=== PATIENT | female | born 1985 | race Caucasian/White ===

== ENCOUNTER 2020-07-14 13:17 | Outpatient (CLI) | payer OTHER ==
[~2020-07-14] VITALS: Ht 170.2 cm; Wt 77.7 kg
[~2020-07-14 13:17] MED LIST changes: -HYDR-3240 PO; -IBUP-1222 PO; -LEVO125T PO; -LEVO125T5 PO; -LEVO137T2 PO; -LEVO150T PO; -LEVO88TA2 PO; -LEVO88TA4 PO; -PREN1TAB79 PO; -SENN-52 PO
[2020-07-14 13:46] LABS: MICROSCOPIC INDICATED
[2020-07-14 14:02] LABS: BASOPHILS % (AUTO) 0 % (0-1); EOSINOPHILS % (AUTO) 1 % (1-7); LYMPHOCYTES % (AUTO) 16 % (22-44); MEAN CORPUSCULAR HEMOGLOBIN 27.8 pg (27.0-34.8); MEAN CORPUSCULAR HGB CONC 32.5 g/dL (32.4-35.8); MEAN PLATELET VOLUME 10.6 fL (7.4-10.4); MONOCYTES % (AUTO) 8 % (2-9); NEUTROPHILS % (AUTO) 74 % (42-75); PLATELET COUNT 174 x10^3/uL (130-400); RED BLOOD COUNT 4.33 x10^6/uL (3.82-5.3); RED CELL DISTRIBUTION WIDTH 13.8 % (9.6-15.2)
[2020-07-14 14:05] LABS: ALBUMIN 2.5 g/dL (3.4-5.0); ANION GAP 8 mmol/L (5-15); CALCIUM 8.7 mg/dL (8.5-10.1); CHLORIDE 108 mmol/L (98-107)
[2020-07-14 14:14] LABS: ALANINE AMINOTRANSFERASE 13 U/L (12-78); ALKALINE PHOSPHATASE 169 U/L (45-117); BILIRUBIN,TOTAL 0.3 mg/dL (0.2-1.0); CREATININE 0.82 mg/dL (0.55-1.02); TOTAL PROTEIN 6.5 g/dL (6.4-8.2)
[2020-07-14 14:18] LABS: BILIRUBIN, DIRECT < 0.1 mg/dL (0.1-0.2)
[2020-07-14 14:36] LABS: MD SCAN
[2020-07-15] MEDS ORDERED: LEVO125T PO (19:37)
[2020-07-15] MEDS ORDERED: LEVO88TA2 PO (19:37)
[2020-07-15] MEDS ORDERED: PREN1TAB79 PO (19:37)
[2020-07-15] MEDS ORDERED: LEVO137T2 PO (19:37)
[2020-07-15] MEDS ORDERED: LEVO150T PO (19:37)
== END 2020-07-14 14:54 | disposition home or self-care (01) ==
LOC: LDOP 13:17
PROVIDERS: ATTEND Obstetrics & Gynecology
DX: O16.3 Unspecified maternal hypertension, third trimester (principal); Z3A.39 39 weeks gestation of pregnancy
CPT/HCPCS: 36415; 59025; 80053; 81001; 82248; 82570; 84156; 84550; 85025

== ENCOUNTER → 2020-07-14 | Outpatient (CLI) | payer OTHER ==
[~2020-07-14] MED LIST: HYDR-3240 PO; HYDR-3245 PO; IBUP-1222 PO; LEVO112T2 PO; LEVO125T PO; LEVO125T5 PO; LEVO137T2 PO; LEVO150T PO; LEVO88TA2 PO; LEVO88TA4 PO; PREN1TAB79 PO; SENN-52 PO
== END | disposition home or self-care (01) ==
LOC: STAR 10:45
PROVIDERS: ATTEND Obstetrics & Gynecology
DX: Z01.812 Encounter for preprocedural laboratory examination (principal); Z20.828 Contact with and (suspected) exposure to other viral communicable diseases
CPT/HCPCS: 36415; 87635

== ENCOUNTER 2020-07-15 16:58 | Inpatient (IN) | payer OTHER ==
[~2020-07-15] VITALS: Ht 170.2 cm; Wt 77.7 kg
[2020-07-15 17:30] VITALS: BP 136/76
[2020-07-15] MEDS ORDERED: TERBUTALINE 1 MG/ML, 1ML SQ PRN (17:30)
[2020-07-15] MEDS ORDERED: OXYTOCIN 30U/ 0.9% NaCL 500ML 500 ML IV PRN (17:30)
[2020-07-15] MEDS ORDERED: FENTANYL PF 100 MCG/2ML IVPush PRN (17:30)
[2020-07-15] MEDS ORDERED: D5%-LACTATED RINGERS 1,000 ML IV SCH (17:30)
[2020-07-15] MEDS ORDERED: LACTATED RINGERS 1,000 ML IV SCH ×2 (17:30→19:00)
[2020-07-15] MEDS ORDERED: OXYTOCIN 30U/ 0.9% NaCL 500ML 500 ML IV ONE (17:30)
[2020-07-15] MEDS ORDERED: ONDANSETRON 2MG/ML, 2ML IVPush PRN (17:30)
[2020-07-15] MEDS ORDERED: TERBUTALINE 1 MG/ML, 1ML IVPush PRN (17:30)
[2020-07-15] MEDS ORDERED: OXYTOCIN 30U/ 0.9% NaCL 500ML 500 ML ONE (17:35)
[2020-07-15] MEDS ORDERED: FENTANYL PF 100 MCG/2ML ONE (17:35)
[2020-07-15] MEDS ORDERED: NEWBORN KIT ONE (17:35)
[2020-07-15 18:08] LABS: BASOPHILS % (AUTO) 0 % (0-1); EOSINOPHILS % (AUTO) 0 % (1-7); LYMPHOCYTES % (AUTO) 13 % (22-44); MEAN CORPUSCULAR HEMOGLOBIN 28.2 pg (27.0-34.8); MEAN CORPUSCULAR HGB CONC 32.9 g/dL (32.4-35.8); MEAN PLATELET VOLUME 11.3 fL (7.4-10.4); MONOCYTES % (AUTO) 7 % (2-9); NEUTROPHILS % (AUTO) 80 % (42-75); PLATELET COUNT 172 x10^3/uL (130-400); RED BLOOD COUNT 4.35 x10^6/uL (3.82-5.3); RED CELL DISTRIBUTION WIDTH 14.2 % (9.6-15.2)
[2020-07-15 18:09] LABS: MD NO
[2020-07-15] MEDS ORDERED: BUPIVACAINE 0.25% ONE (18:14)
[2020-07-15] MEDS ORDERED: FENTANYL/BUPIV./NS/PF 250 ML EPIDCONT ONE (18:15)
[2020-07-15] MEDS ORDERED: LACTATED RINGERS 1,000 ML IVBOLUS PRN (19:00)
[2020-07-15] MEDS ORDERED: EPHEDRINE 50 MG/ML, 1ML IVPush PRN (19:00)
[2020-07-15] MEDS ORDERED: FENTANYL/BUPIV./NS/PF 250 ML EPIDCONT SCH (19:00)
[2020-07-15] MEDS ORDERED: PREN1TAB79 PO (19:37)
[2020-07-15] MEDS ORDERED: LEVO137T2 PO (19:37)
[2020-07-15] MEDS ORDERED: LEVO125T PO (19:37)
[2020-07-15] MEDS ORDERED: LEVO88TA2 PO (19:37)
[2020-07-15] MEDS ORDERED: LEVO150T PO (19:37)
[2020-07-15 19:53] VITALS: BP 127/74
[2020-07-16] MEDS ORDERED: MISOPROSTOL 200 MCG TABLET ONE (00:04)
[2020-07-16] MEDS ORDERED: OXYcodone/APAP 5/325MG TABLET PO PRN ×2 (01:30)
[2020-07-16] MEDS ORDERED: ONDANSETRON 2MG/ML, 2ML IV PRN (01:30)
[2020-07-16] MEDS ORDERED: CARBOPROST TROMETHAMINE 250 MCG/ML, 1ML IM PRN (01:30)
[2020-07-16] MEDS ORDERED: MISOPROSTOL 200 MCG TABLET PR PRN (01:30)
[2020-07-16] MEDS ORDERED: OXYTOCIN 10 UNITS/ML, 1ML IM PRN (01:30)
[2020-07-16] MEDS ORDERED: OXYTOCIN 30U/ 0.9% NaCL 500ML 500 ML IV SCH (01:30)
[2020-07-16] MEDS ORDERED: ACETAMINOPHEN 325 MG TABLET PO PRN (01:30)
[2020-07-16] MEDS ORDERED: SIMETHICONE 80 MG CHEW TAB PO PRN (01:30)
[2020-07-16] MEDS ORDERED: METHYLERGONOVINE 0.2 MG/ML IM PRN (01:30)
[2020-07-16] MEDS: PERCOCET MC SCH ×3 (02:00→18:00)
[2020-07-16] MEDS ORDERED: OXYTOCIN 30U/ 0.9% NaCL 500ML 500 ML ONE (02:32)
[2020-07-16] MEDS ORDERED: IBUPROFEN 600 MG TABLET ONE (02:50)
[2020-07-16] MEDS: IBUPROFEN 600 MG TABLET PO PRN ×4 (02:51→21:07)
[2020-07-16 04:27] VITALS: BP 146/79
[2020-07-16 07:15] VITALS: BP 123/76
[2020-07-16] MEDS: PRENATAL VIT/IRON/FA 1 EACH TABLET PO SCH (08:00)
[2020-07-16] MEDS: DOCUSATE 100 MG CAPSULE PO PRN ×2 (08:00→21:07)
[2020-07-16 09:16] LABS: BASOPHILS % (AUTO) 0 % (0-1); EOSINOPHILS % (AUTO) 0 % (1-7); LYMPHOCYTES % (AUTO) 11 % (22-44); MEAN CORPUSCULAR HGB CONC 33.1 g/dL (32.4-35.8); MEAN PLATELET VOLUME 10.9 fL (7.4-10.4); MONOCYTES % (AUTO) 7 % (2-9); NEUTROPHILS % (AUTO) 82 % (42-75); PLATELET COUNT 162 x10^3/uL (130-400); RED BLOOD COUNT 4.07 x10^6/uL (3.82-5.3)
[2020-07-16 09:26] LABS: MD NO
[2020-07-16 12:50] VITALS: BP 138/84
[2020-07-16 16:47] VITALS: BP 129/84
[2020-07-16 20:00] VITALS: BP 134/76
[2020-07-17 00:10] VITALS: BP 127/73
[2020-07-17] MEDS: PERCOCET MC SCH ×2 (02:00→09:50)
[2020-07-17 08:00] VITALS: BP 134/82
[2020-07-17] MEDS: PRENATAL VIT/IRON/FA 1 EACH TABLET PO SCH (08:59)
[2020-07-17] MEDS: DOCUSATE 100 MG CAPSULE PO PRN (08:59)
[2020-07-17] MEDS: IBUPROFEN 600 MG TABLET PO PRN (09:00)
[2020-07-17] MEDS ORDERED: HYDR-3240 PO (09:42)
[2020-07-17] MEDS ORDERED: IBUP-1222 PO (09:43)
[2020-07-17] MEDS ORDERED: SENN-52 PO (09:44)
[2020-07-17] MEDS ORDERED: LEVO125T5 PO (10:29)
[2020-07-17] MEDS ORDERED: LEVO88TA4 PO (10:30)
== END 2020-07-17 10:59 | disposition home or self-care (01) | DRG 807 ==
LOC: LDOP 16:58 → LDIP 17:22 → 2NW 07-16 06:21
PROVIDERS: ADMIT Pediatrics Adolescent Medicine; ATTEND Obstetrics & Gynecology
PROC: 10E0XZZ Delivery of Products of Conception, External Approach (ICD-10-PCS; principal; 2020-07-16)
PROC: 10907ZC Drainage of Amniotic Fluid, Therapeutic from Products of Conception, Via Natural or Artificial Opening (ICD-10-PCS; 2020-07-16)
PROC: 3E0P7VZ Introduction of Hormone into Female Reproductive, Via Natural or Artificial Opening (ICD-10-PCS; 2020-07-16)
PROC: 0HQ9XZZ Repair Perineum Skin, External Approach (ICD-10-PCS; 2020-07-16)
PROC: 10907ZC Drainage of Amniotic Fluid, Therapeutic from Products of Conception, Via Natural or Artificial Opening (ICD-10-PCS; 2020-07-16)
DX: O77.0 Labor and delivery complicated by meconium in amniotic fluid (principal); Z37.0 Single live birth; O70.0 First degree perineal laceration during delivery; Z20.828 Contact with and (suspected) exposure to other viral communicable diseases; Z3A.39 39 weeks gestation of pregnancy; Z85.850 Personal history of malignant neoplasm of thyroid; Z88.5 Allergy status to narcotic agent
CPT/HCPCS: 36415; 85025; 86592; 86850; 86900; 87635; G0378; J3010; J2590; J7120